=== PATIENT | female | born 1960 | race Hispanic/Latino ===

== ENCOUNTER 2018-12-08 12:00 | Emergency (ER) | payer OTHER ==
[~2018-12-08 12:00] MED LIST: FEXO-23 PO; FISH1CAP63 PO; IRON-23 PO; PANT40TA25 PO
[2018-12-08 13:25] LABS: RAPID GROUP A STREP NEGATIVE (NEGATIVE)
== END 2018-12-08 14:16 | disposition home or self-care (01) ==
LOC: EDH 12:00
DX: R05 Cough (principal); R50.9 Fever, unspecified; M79.10 Myalgia, unspecified site; J02.9 Acute pharyngitis, unspecified; H92.09 Otalgia, unspecified ear; Z88.2 Allergy status to sulfonamides; Z88.8 Allergy status to other drugs, medicaments and biological substances; Z90.49 Acquired absence of other specified parts of digestive tract
CPT/HCPCS: 87804; 87880

== ENCOUNTER 2019-11-11 18:50 | Emergency (ER) | payer OTHER ==
[2019-11-11 19:46] LABS: RAPID GROUP A STREP NEGATIVE (NEGATIVE)
[2019-11-11] MEDS ORDERED: IPRATROPIUM/ALBUTEROL SULFATE 3 ML SOLUTION IH ONE (20:15)
== END 2019-11-11 21:04 | disposition home or self-care (01) ==
LOC: EDH 18:50
DX: B34.9 Viral infection, unspecified (principal); Z88.1 Allergy status to other antibiotic agents; Z88.2 Allergy status to sulfonamides; Z88.6 Allergy status to analgesic agent
CPT/HCPCS: 71045; 87804; 87880; 94640

== ENCOUNTER → 2022-11-14 | Outpatient (CLI) | payer OTHER ==
[~2022-11-14] MED LIST changes: +GADOTERATE MEGLUMINE 10 MMOL/20 ML VIAL IV ONE; -PANT40TA25 PO; +PANT40TA54 PO
== END | disposition home or self-care (01) ==
LOC: RAH 08:13
PROVIDERS: ATTEND Internal Medicine
DX: K76.89 Other specified diseases of liver (principal); N28.1 Cyst of kidney, acquired; R93.2 Abnormal findings on diagnostic imaging of liver and biliary tract
CPT/HCPCS: 74183; A9575